=== PATIENT | female | born 1975 | race Two or more races ===

== ENCOUNTER 2023-09-23 12:47 | Emergency (ER) | payer MEDICAID ==
[~2023-09-23] VITALS: Ht 165.1 cm; Wt 131.8 kg
[2023-09-23] MEDS: IPRATROPIUM BROMIDE 0.5 MG/2.5 ML NEB SOLUTION NEB ONE (13:29)
[2023-09-23] MEDS: ALBUTEROL SULFATE 2.5 MG/0.5 ML NEB SOLUTION NEB ONE (13:29)
[2023-09-23 13:30] VITALS: PULSE 87; RESP 16; O2SAT 97
[2023-09-23] MEDS: PredniSONE 20 MG TABLET PO ONE (13:30)
[2023-09-23 13:32] VITALS: PULSE 87; RESP 16; O2SAT 97
[2023-09-23 14:23] LABS: INFLUENZA A-RTPCR,COMBO NEGATIVE (NEGATIVE); INFLUENZA B-RTPCR,COMBO NEGATIVE (NEGATIVE); RESPIRATORY SYNCYTIAL VRS-PCR NEGATIVE (NEGATIVE); SARS COVID19 RTPCR, COMBO NEGATIVE (NEGATIVE)
[2023-09-23] MEDS ORDERED: PRED-554 PO (14:27)
[2023-09-23] MEDS ORDERED: ALBU2.5V39 NEB (14:27)
[2023-09-23] MEDS ORDERED: ALBU18HF12 IH (14:27)
[2023-09-23 14:33] VITALS: BP 120/88; PULSE 80; RESP 16
== END 2023-09-23 14:34 | disposition home or self-care (01) ==
LOC: EMS 12:49
DX: J45.909 Unspecified asthma, uncomplicated (principal); Z91.013 Allergy to seafood; Z20.822 Contact with and (suspected) exposure to COVID-19
CPT/HCPCS: 99284; 0241U; 71045; 94640; J7512; J7613

== ENCOUNTER 2023-11-27 18:24 | Emergency (ER) | payer MEDICAID ==
[~2023-11-27] VITALS: Ht 160 cm; Wt 131.8 kg
[~2023-11-27 18:24] MED LIST: ALBU18HF12 IH; ALBU2.5V39 NEB; PRED-554 PO
[2023-11-27 18:28] VITALS: BP 136/75; PULSE 58; RESP 18; TEMP 98.6
[2023-11-28] MEDS ORDERED: TRAM50TA5 PO (16:42)
== END 2023-11-27 21:56 | disposition left against medical advice (07) ==
LOC: EMS 18:24
DX: M79.604 Pain in right leg (principal); Z53.21 Procedure and treatment not carried out due to patient leaving prior to being seen by health care provider
CPT/HCPCS: 99281; Z7502

== ENCOUNTER 2023-11-28 15:12 | Emergency (ER) | payer MEDICAID ==
[~2023-11-28] VITALS: Ht 160 cm; Wt 135.4 kg
[2023-11-28 15:20] VITALS: BP 109/69; PULSE 72; RESP 18; TEMP 98.6
[2023-11-28] MEDS ORDERED: TRAM50TA5 PO (16:42)
[2023-11-28] MEDS: LIDOCAINE 5% TRANSDERMAL PATCH TD ONE (16:46)
[2023-11-28] MEDS: KETOROLAC TROMETHAMINE 30 MG/ML VIAL IM ONE (16:48)
== END 2023-11-28 17:27 | disposition home or self-care (01) ==
LOC: EMS 15:25
DX: S83.241A Other tear of medial meniscus, current injury, right knee, initial encounter (principal); Z91.018 Allergy to other foods; X58.XXXA Exposure to other specified factors, initial encounter; Y93.89 Activity, other specified; Y92.89 Other specified places as the place of occurrence of the external cause; Y99.8 Other external cause status
CPT/HCPCS: 99283; 73564; 96372; J1885